=== PATIENT | female | born 1990 | race African-American/Black ===

== ENCOUNTER 2016-12-17 10:31 | Emergency (ER) | payer MEDICAID, OTHER ==
[2016-12-17] MEDS ORDERED: Amoxicillin/Potassium Clav 875 MG TAB ONE (11:31)
[2016-12-17] MEDS ORDERED: Ibuprofen 800 MG TAB ONE (11:31)
[2016-12-17] MEDS ORDERED: predniSONE 20 MG TAB ONE (11:31)
== END 2016-12-17 11:45 | disposition home or self-care (01) ==
LOC: MADERS 10:31
DX: J20.9 Acute bronchitis, unspecified (principal)
CPT/HCPCS: 99283; J7506